=== PATIENT | female | born 1990 | race African-American/Black ===

== ENCOUNTER 2018-08-26 13:54 | Emergency (ER) | payer OTHER ==
[2018-08-26 14:03] VITALS: BP 118/84; PULSE 108; TEMP 97.8; BMI 42.7
--- NOTE | 2018-08-26 14:03 | PDOC ---
Rapid Medical Evaluation Chief Complaint: CVA/TIA Time Seen by Provider: 08/26/18 13:58 Medical Evaluation: Allergies Allergy/AdvReac Type Severity Reaction Status Date / Time No Known Allergies Allergy Verified 10/24/15 09:36 08/26/18 14:0 CC: Slurred speech HPI: Pt is a 27 YO female who states that at 1340 she went to the school nurse and had slurred speech and left arm weakness which has subsided. Pt has a hx of previous TIA/CVA. 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 PE: Skin: Clear Lungs: Clear Heart: RRR Neuro: No slurred speech, no protonator drift, 5/5 strength in UE and LE groups , pt ambulated to exam room MS: Moves all extremities without difficulty. Psych: Appropriate affect Pt went to the back of ED for immediate further evaluation. Discharge Disposition - Diagnosis Slurred speech - Referrals - Patient Instructions - Post Discharge Activity
[2018-08-26] MEDS ORDERED: SODIUM CHLORIDE 1,000 ML IV SCH (14:15)
[2018-08-26 14:56] LABS: INR 1.13 (0.83-1.09); PROTHROMBIN TIME (PATIENT) 13.4 SEC (9.7-13.0)
[2018-08-26 15:17] LABS: ALBUMIN 3.2 g/dl (3.4-5.0); ALK PHOS 79 U/L (45-117); ANION GAP 11 MMOL/L (8-16); BILIRUBIN,TOTAL 0.5 mg/dL (0.2-1); BLOOD UREA NITROGEN 13 mg/dL (7-18); CALCIUM 8.6 mg/dL (8.5-10.1); CHLORIDE 106 mmol/L (98-107); CHOLESTEROL 187 mg/dL (50-200); CO2 23 mmol/L (21-32); CREATININE 0.8 mg/dL (0.55-1.3); GLUCOSE,RANDOM 146 mg/dL (74-106); HDL CHOLESTEROL 54 mg/dL (40-60); POTASSIUM 3.7 mmol/L (3.5-5.1); SGOT/AST 6 U/L (15-37); SGPT/ALT 14 U/L (13-61); SODIUM 141 mmol/L (136-145); TOT PROT 7.4 g/dl (6.4-8.2); TRIGLYCERIDES 127 mg/dL (0-150)
--- NOTE | 2018-08-26 16:23 | PDOC ---
History of Present Illness - General Chief Complaint: CVA/TIA Stated Complaint: LT ARM NUMBNESS, SLURRED SPEECH Time Seen by Provider: 08/26/18 13:58 History Source: Patient Exam Limitations: No Limitations - History of Present Illness Initial Comments: 08/26/18 16:23 Patient is a 27 year old female with a PMHx of Iron Deficiency Anemia who presents here today complaining of an episode of slurred speech and right arm weakness. 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 She was then taken to the nurse at her school and recommended she goes to the emergency department. Patient was brought here by the nurse and seen in Fast track and brought to main ED. Patient reports having similar symptoms in the past and was seen by a neurologist and her PCP, however, she was never given a diagnosis. She states that they keep telling her "everything is ok." Patient denies any chest pain, palpitations, shortness of breath, fevers, chills , nausea, vomiting, abdominal pain, acute vision changes, loss of consciousness , urinary or bowel symptoms. Patient denies any emotional stresses or history of anxiety. 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 Family Hx: Maternal grandmother- stroke and CAD Past History - Past Medical History Allergies/Adverse Reactions: Allergies Allergy/AdvReac Type Severity Reaction Status Date / Time No Known Allergies Allergy Verified 10/24/15 09:36 Home Medications: Ambulatory Orders Ferrous Sulfate 325 mg PO TID #60 tablet 04/17/13 Folic Acid - 1 mg PO DAILY #10 tablet 04/17/13 Anemia: Yes COPD: No Disorders: Yes (Heavy prolonged periods) Other medical history: mild stroke -1 year ago - Reproductive History (#): 0 Cervical CA: No Dysfunctional Uterine Bleeding: No Ectopic : No Endometrial CA: No Polycystic Ovaries: No Therapeutic (s) & number: No Tubal Ligation: No - Immunization History Immunization Up to Date: Yes - Suicide/Smoking/Psychosocial Hx Smoking Status: No Smoking History: Never smoked Have you smoked in the past 12 months: No Number of Cigarettes Smoked Daily: 0 Information on smoking cessation initiated: No Hx Alcohol Use: No Drug/Substance Use Hx: No Substance Use Type: None Hx Substance Use Treatment: No Review of Systems - Review of Systems Able to Perform ROS?: Yes Constitutional: No: Chills, Diaphoresis, Fever HEENTM: No: Blurred Vision, Nose Congestion, Nose Bleeding, Throat Swelling Respiratory: No: Cough, Orthopnea, Shortness of Breath, SOB with Exertion, SOB at Rest, Stridor, Wheezing, Productive cough, Hemoptysis Cardiac (ROS): No: Chest Pain, Edema, Irregular Heart Rate, Lightheadedness, Palpitations, Syncope, Chest Tightness ABD/GI: No: Abdominal Distended, Constipated, Diarrhea, Nausea, Vomiting, Abdominal cramping : No: Burning, Dysuria, Discharge, Flank Pain, Hematuria, Urgency Musculoskeletal: No: Back Pain, Gout, Neck Pain, Joint Stiffness Neurological: Yes: Headache, Numbness (right arm ), Weakness. No: Paresthesia, Tingling, Unsteady Gait, Ataxia, Dizziness Psychiatric: No: Anxiety, Depression Hematologic/Lymphatic: Yes: Anemia *Physical Exam - Vital Signs Last Vital Signs Temp Pulse Resp BP Pulse Ox 97.8 F 108 H 18 118/84 100 08/26/18 13:59 08/26/18 13:59 08/26/18 13:59 08/26/18 13:59 08/26/18 13:59 - Physical Exam General Appearance: Yes: Other (Awake, alert, oriented x3, yelling during examination, billigerent, intermittently uncooperative ) HEENT: positive: EOMI, ALEX, Normal ENT Inspection, Pharynx Normal. negative: Tonsillar Exudate, Tonsillar Erythema, Sinus Tenderness Neck: positive: Supple. negative: Carotid bruit, Decreased range of motion Respiratory/Chest: positive: Lungs Clear, Normal Breath Sounds. negative: Respiratory Distress, Accessory Muscle Use, Decreased Breath Sounds, Crackles, Rales, Rhonchi, Stridor, Wheezing Cardiovascular: positive: Regular Rhythm, Regular Rate, S1, S2. negative: Edema , JVD, Murmur Gastrointestinal/Abdominal: positive: Other (Soft, obese, nontender, nondistended, normoactive bowel sounds, no rebound tenderness or guarding) Musculoskeletal: positive: Normal Inspection. negative: CVA Tenderness, CVA Tenderness (R), CVA Tenderness (L) Extremity: positive: Normal Capillary Refill, Normal Inspection, Normal Range of Motion. negative: Tender, Pelvis Stable, Delayed Capillary Refill, Swelling , Calf Tenderness, Erythema Integumentary: positive: Normal Color, Dry, Warm. negative: Erythema, Jaundice Neurologic: positive: senior oracle database developer II-XII NML intact, Fully Oriented, Alert, Normal Response, Motor Strength 5/5, Finger to Nose (normal ). negative: Abnormal Cranial NS, Numbness, Sensory Deficit, Confused, Disoriented Deep Tendon Reflexes: Knee (L): 2+, Knee (R): 2+, Bicep (L): 2+, Bicep (R): 2+, Tricep (L): 2+, Tricep (R): 2+ NIH Stroke Scale - Initial Evaluation Level of consciousness: Alert Ask patient the month and their age: Answers both correctly Ask patient to open & close eyes; make fist and let go: Obeys both correctly Best gaze (horizontal eye movement): Normal Visual field testing: No visual field loss Facial paresis (Show teeth/raise eyebrows/close eyes tight): Normal symmetrical movement Motor Function: Left Arm: Normal Motor Function: Right Arm: Normal (extends arm 90 (or 45) degrees for 10 seconds without drift Motor Function: Left Leg: Normal (extends leg 30 degrees for 5 seconds without drift) Motor Function: Right Leg: Normal (extends leg 30 degrees for 5 seconds without drift) Limb Ataxia: No ataxia Sensory(Use pinprick test arms,legs,trunk,face/side to side): Normal Best language (Describe picture, name items, read sentences): No Aphasia Dysarthria (read several words): Normal articulation Extinction and Inattention: No abnormality - Total Score NIH Stroke Scale Score: 0 Moderate Sedation - Procedure Monitoring Vital Signs: Procedure Monitoring Vital Signs Temperature 97.8 F 08/26/18 13:59 Pulse Rate 108 H 08/26/18 13:59 Respiratory Rate 18 08/26/18 13:59 Blood Pressure 118/84 08/26/18 13:59 O2 Sat by Pulse Oximetry (%) 100 08/26/18 13:59 Critical Care Time/[facility] Note - Medical Decision Making Note: 08/26/18 16:42 Patient is a 27 year old female who presented here after one episode of slurred speech with right arm weakness and numbness. Patient reports having similar symptoms in the past and was seen by Neurology for it. However, patient reports she was never given a diagnosis. Upon my arrival to evaluate patient, she was belligerent, yelling and verbally abusing me and the nurse. Kept shouting to me that she wants a diagnosis. Patient was refusing to have her blood drawn again for hemolyzed CBC and refusing Head CT to rule out any neurological etiology such as stroke or hemorrhagic bleed. Patient then left AMA. PATIENT ADAMANTLY REFUSES HOSPITALIZATION AND WANTS TO LEAVE AGAINST MEDICAL ADVICE. I EXPLAINED TO PATIENT THAT AGAINST MEDICAL ADVICE IS DANGEROUS AND CAN LEAD TO WORSENING OF CONDITION, PERMANENT DISABILITY, AND EVEN . I USED LAY TERMINOLOGY. I ANSWERED ALL QUESTIONS. ITS CLEAR TO ME THAT SHE UNDERSTANDS THE RISKS AND BENEFITS OF CONTINUOUS HOSPITAL STAY AND LEAVING AGAINST MEDICAL ADVISE. THERE IS NO EVIDENCE OF PSYCHOSIS, ALTERED MENTAL STATUS OR INTOXICATION. SHE HAS THE CAPACITY TO MAKE HER OWN DECISIONS. SHE AGREES TO FOLLOW UP WITH HER PRIMARY MEDICAL DOCTOR TOMORROW AND RETURN TO THE EMERGENCY DEPARTMENT IF SYMPTOMS WORSEN. Patient made an appointment to see her PCP as soon as she leaves the hospital *DC/Admit/Observation/Transfer Diagnosis at time of Disposition: Slurred speech - Discharge Dispostion Disposition: AGAINST MEDICAL ADVICE - Referrals - Patient Instructions - Post Discharge Activity
--- NOTE | 2018-08-26 16:25 | PDOC ---
Attending Attestation - Resident Resident Name: Maren Cornelius - ED Attending Attestation I have performed the following: I have examined & evaluated the patient, The case was reviewed & discussed with the resident, I agree w/resident's findings & plan - Medical Decision Making 08/26/18 16:23 pt was seen at [facility], workup initiated. sx resolved. not tpa candidate given improvement. Discussion at the bedside with patient. pt became agitated and argumentative, refusing labs/repeat stick for hemolyzed CBC and CT head to eval for SAH/bleed/ CVA. pt refused further workup, elects to go home. Pt has capacity to make medical decisions. Discussed indications for treatment and admission, management plan, risks and benefits. There is no evidence of psychosis, altered mental status or intoxication. Pt understands the nature of condition and treatment plan, including potential risks but not limited to: cardiac arrest, severe infection, dehydration, myocardial infarction, arrhythmia , stroke, respiratory failure, coma, severe disability and . Pt will be treated with close follow up with primary care doctor with reevaluation. Return precautions advised, call 911 immediately if severe life threatening symptoms or concerns.. Pt has verbalized understanding of information provided, questions answered.
--- NOTE | 2018-08-27 10:58 | EKG ---
Test Reason : Blood Pressure : / mmHG Vent. Rate : 094 BPM Atrial Rate : 094 BPM P-R Int : 150 ms QRS Dur : 082 ms QT Int : 342 ms P-R-T Axes : 048 031 024 degrees QTc Int : 427 ms NORMAL SINUS RHYTHM NORMAL ECG WHEN COMPARED WITH ECG OF 09-MAR-2012 18:26, NO SIGNIFICANT CHANGE WAS FOUND Confirmed by CAROLYN EDMONDSON MD ([id number]) on 08/27/2018 10:58:09 AM Referred By: Confirmed By:CAROLYN EDMONDSON MD
== END 2018-08-26 16:20 | disposition left against medical advice (07) ==
LOC: JER 13:54
DX: R47.81 Slurred speech (principal); D50.9 Iron deficiency anemia, unspecified; Z86.73 Personal history of transient ischemic attack (TIA), and cerebral infarction without residual deficits
CPT/HCPCS: 36415; 80053; 82465; 82550; 83718; 83721; 84478; 84484; 84703; 85610; 86850; 86870; 86900; 86901; 86902; 93005; 93010; 99282-25; J7030

== ENCOUNTER 2018-09-24 09:46 | Emergency (ER) | payer OTHER ==
[2018-09-24 10:19] VITALS: BMI 47.5
[2018-09-24] MEDS ORDERED: METOCLOPRAMIDE HCL INJECTION 10 MG/2 ML VIAL IVPB ONE (11:21)
[2018-09-24] MEDS ORDERED: ACETAMINOPHEN 1000 MG/100 ML VIAL (NON FORMULARY) IVPB ONE (11:21)
[2018-09-24] MEDS ORDERED: SODIUM CHLORIDE 1,000 ML IV STA (11:21)
--- NOTE | 2018-09-24 11:22 | PDOC ---
History of Present Illness - General Chief Complaint: Vaginal Bleeding Stated Complaint: HEADACHE/COUGH Time Seen by Provider: 09/24/18 10:26 Past History - Past Medical History Allergies/Adverse Reactions: Allergies Allergy/AdvReac Type Severity Reaction Status Date / Time No Known Allergies Allergy Verified 10/24/15 09:36 Home Medications: Ambulatory Orders Ferrous Sulfate 325 mg PO TID #60 tablet 04/17/13 Folic Acid - 1 mg PO DAILY #10 tablet 04/17/13 Anemia: Yes Asthma: No Cancer: No Cardiac Disorders: No CVA: No COPD: No CHF: No DVT: No Dementia: No Diabetes: No Dialysis: No GI Disorders: No Disorders: Yes (Heavy prolonged periods) HTN: No Hypercholesterolemia: No Kidney Stones: No Liver Disease: No Psychiatric Problems: No Seizures: No Thyroid Disease: No Lung CA: No - Surgical History Abdominal Surgery: No Appendectomy: No Cardiac Surgery: No Cholecystectomy: No Gastric Stapling: No GI Surgery: No Lung Surgery: No Neurologic Surgery: No - Reproductive History Is Patient Now?: No (#): 0 Cervical CA: No Dysfunctional Uterine Bleeding: No Ectopic : No Endometrial CA: No Polycystic Ovaries: No Therapeutic (s) & number: No Tubal Ligation: No - Immunization History Immunization Up to Date: Yes - Suicide/Smoking/Psychosocial Hx Smoking Status: No Smoking History: Never smoked Have you smoked in the past 12 months: No Number of Cigarettes Smoked Daily: 0 Hx Alcohol Use: Yes Drug/Substance Use Hx: No Substance Use Type: None Hx Substance Use Treatment: No *Physical Exam - Vital Signs Last Vital Signs Temp Pulse Resp BP Pulse Ox 98.3 F 80 18 116/58 L 100 09/24/18 10:53 09/24/18 10:53 09/24/18 10:53 09/24/18 10:53 09/24/18 10:53 Moderate Sedation - Procedure Monitoring Vital Signs: Procedure Monitoring Vital Signs Temperature 98.3 F 09/24/18 10:53 Pulse Rate 80 09/24/18 10:53 Respiratory Rate 18 09/24/18 10:53 Blood Pressure 116/58 L 09/24/18 10:53 O2 Sat by Pulse Oximetry (%) 100 09/24/18 10:53 ED Treatment Course - LABORATORY CBC & Chemistry Diagram: 09/24/18 12:39 09/24/18 12:39 *DC/Admit/Observation/Transfer Diagnosis at time of Disposition: Headache - Discharge Dispostion Disposition: AGAINST MEDICAL ADVICE Condition at time of disposition: Fair - Referrals Referrals: Shaquille Stover MD [Primary Care Provider] - - Patient Instructions - Post Discharge Activity
[2018-09-24] MEDS ORDERED: diphenhydrAMINE HCL 12.5 MG/5 ML BULK BOTTLE ONE (11:40)
[2018-09-24] MEDS ORDERED: METOCLOPRAMIDE HCL INJECTION 10 MG/2 ML VIAL ONE (11:40)
[2018-09-24] MEDS ORDERED: ACETAMINOPHEN INJECTION 100 ML IVPB ONE (11:40)
[2018-09-24 12:53] LABS: BASO % 0.7 % (0-2.0); EOS % 5.3 % (0-4.5); HEMATOCRIT 25.9 % (32.4-45.2); HEMOGLOBIN 8.3 GM/dL (10.7-15.3); LYMPH % 16.1 % (8-40); MCHC 32.3 g/dl (32.0-36.0); MEAN CELL VOLUME 65.1 fl (80-96); MEAN PLT VOLUME 8.7 fl (7.5-11.1); NEUT % 73.9 % (42.8-82.8); PLATELET COUNT 421 K/MM3 (134-434); RBC 3.97 M/mm3 (3.60-5.2); RDW 24.9 % (11.6-15.6); WHITE BLOOD COUNT 8.8 K/mm3 (4.0-10.0)
[2018-09-24 13:08] LABS: INR 1.17 (0.83-1.09); PROTHROMBIN TIME (PATIENT) 13.8 SEC (9.7-13.0)
[2018-09-24 13:20] LABS: ALBUMIN 3.2 g/dl (3.4-5.0); ALK PHOS 84 U/L (45-117); ANION GAP 7 MMOL/L (8-16); BILIRUBIN,TOTAL 0.2 mg/dL (0.2-1); BLOOD UREA NITROGEN 11 mg/dL (7-18); CALCIUM 8.5 mg/dL (8.5-10.1); CHLORIDE 104 mmol/L (98-107); CO2 27 mmol/L (21-32); CREATININE 0.7 mg/dL (0.55-1.3); GLUCOSE,RANDOM 101 mg/dL (74-106); POTASSIUM 4.1 mmol/L (3.5-5.1); SGOT/AST 25 U/L (15-37); SGPT/ALT 14 U/L (13-61); SODIUM 137 mmol/L (136-145); TOT PROT 7.8 g/dl (6.4-8.2)
[2018-09-24 13:36] VITALS: BP 128/77; PULSE 73; TEMP 98.2
[2018-09-24 16:43] LABS: ANISOCYTOSIS 2+; PLATELET ESTIMATE ADEQUATE
== END 2018-09-24 13:30 | disposition left against medical advice (07) ==
LOC: JER 09:46
PROC: 3E033NZ Introduction of Analgesics, Hypnotics, Sedatives into Peripheral Vein, Percutaneous Approach (ICD-10-PCS; principal; 2018-09-24)
PROC: 3E033GC Introduction of Other Therapeutic Substance into Peripheral Vein, Percutaneous Approach (ICD-10-PCS; 2018-09-24)
PROC: 3E033GC Introduction of Other Therapeutic Substance into Peripheral Vein, Percutaneous Approach (ICD-10-PCS; 2018-09-24)
DX: R51 Headache (principal); N92.0 Excessive and frequent menstruation with regular cycle
CPT/HCPCS: 36415; 80053; 85025; 85610; 96374; 96375; 99283-25; J0131; J7030

== ENCOUNTER 2020-03-23 18:56 | Inpatient (IN) | payer OTHER ==
[2020-03-23 19:11] VITALS: BMI 47.2
[2020-03-23 20:49] LABS: BASO % 1.1 % (0-2.0); EOS % 0.7 % (0-4.5); HEMATOCRIT 17.8 % (32.4-45.2); LYMPH % 18.5 % (8-40); MCHC 28.3 g/dl (32.0-36.0); MEAN CELL VOLUME 61.4 fl (80-96); MEAN PLT VOLUME 8.8 fl (7.5-11.1); MONO % 4.1 % (3.8-10.2); NEUT % 75.6 % (42.8-82.8); PLATELET COUNT 313 K/MM3 (134-434); RBC 2.89 M/mm3 (3.60-5.2); RDW 22.9 % (11.6-15.6); WHITE BLOOD COUNT 11.1 K/mm3 (4.0-10.0)
[2020-03-23 20:53] LABS: MCH 17.4 pg (25.7-33.7)
[2020-03-23 21:04] LABS: INR 1.08 (0.83-1.09); PROTHROMBIN TIME (PATIENT) 12.7 SEC (9.7-13.0)
[2020-03-23 21:07] LABS: ACTIVATED PTT 26.4 SECONDS (25.2-36.5)
--- NOTE | 2020-03-23 21:17 | PDOC ---
History of Present Illness - General Chief Complaint: Vaginal Bleeding Stated Complaint: MIGRANE Time Seen by Provider: 03/23/20 21:03 - History of Present Illness Initial Comments: Bebe Smith is a 29 y/o female with PMH significant for anemia, PCOS, menorrhagia, s/p CVA, presenting today with fatigue, cough, vaginal bleeding shortness of breath, and dizziness. Pre patient, she was at work when she started feeling fatigue and fell asleep, which prompted her business integration manager to suggest she present to the ED for further evaluation. Pt states that she has PCOS and a history of heavy periods. Her current period started on March 10 and she started feeling dizzy and short of breath since Saturday. Also reports a chronic cough for the past 3 months which she has seen her PCP for. No chest pain/weakness/numbness/tingling. No back pain/leg swelling. Past History - Medical History Allergies/Adverse Reactions: Allergies Allergy/AdvReac Type Severity Reaction Status Date / Time ceftriaxone Allergy Severe Vomiting Verified 03/24/20 10:51 Home Medications: Ambulatory Orders Ferrous Sulfate 325 mg PO BID 03/23/20 Metformin HCl [Glucophage] 500 mg PO BID 03/24/20 Anemia: Yes Asthma: No Cancer: No Cardiac Disorders: No CVA: Yes (stroke 09/2018) COPD: No CHF: No DVT: No Dementia: No Diabetes: No Dialysis: No GI Disorders: No Disorders: Yes (Heavy prolonged periods) HTN: No Hypercholesterolemia: No Kidney Stones: No Liver Disease: No Psychiatric Problems: No Seizures: No Thyroid Disease: No Lung CA: No - Surgical History Abdominal Surgery: No Appendectomy: No Cardiac Surgery: No Cholecystectomy: No Gastric Stapling: No GI Surgery: No Lung Surgery: No Neurologic Surgery: No - Reproductive History Is Patient Now?: No (#): 0 Cervical CA: No Dysfunctional Uterine Bleeding: No Ectopic : No Endometrial CA: No Polycystic Ovaries: No Therapeutic (s) & number: No Tubal Ligation: No - Immunization History Immunization Up to Date: Yes - Psycho-Social/Smoking History Smoking Status: No Smoking History: Never smoked Have you smoked in the past 12 months: No Number of Cigarettes Smoked Daily: 0 - Substance Abuse Hx (Audit-C & DAST Scrn) How often the patient has a drink containing alcohol: Monthly or less Number of drinks the patient has on a typical day: 1 or 2 How often the patient has six or more drinks on one occasion: Less than monthly Score: In Men: 4 or > Positive; In Women: 3 or > Positive: 2 Screen Result (Pos requires Nsg. Audit-10AR): Negative In the last yr the pt used illegal drug/Rx for NonMed reason: No Score: Yes response is considered Positive: 0 Screen Result (Positive result requires Nsg. DAST-10): Negative Review of Systems - Review of Systems Comments:: GENERAL/CONSTITUTIONAL: No fever or chills. Reports fatigue. HEAD, EYES, EARS, NOSE AND THROAT: No change in vision. No change in hearing. No sore throat._ CARDIOVASCULAR: No chest pain. Reports shortness of breath. RESPIRATORY: Reports cough. No hemoptysis_ GASTROINTESTINAL: No nausea, vomiting, diarrhea or constipation._ GENITOURINARY: No dysuria, frequency, or change in urination. Reports heavy menstrual bleeding. MUSCULOSKELETAL: No joint or muscle swelling or pain. No neck or back pain._ SKIN: No rash_ NEUROLOGIC: Reports mild headache and lightheadedness. No vertigo, loss of consciousness, or change in strength/sensation._ ENDOCRINE: No increased thirst. No abnormal weight change_ HEMATOLOGIC/LYMPHATIC: Reports anemia. ALLERGIC/IMMUNOLOGIC: No hives or skin allergy. *Physical Exam - Vital Signs Last Vital Signs Temp Pulse Resp BP Pulse Ox 98.6 F 116 H 19 111/54 L 100 03/23/20 19:04 03/23/20 19:04 03/23/20 19:04 03/23/20 19:04 03/23/20 19:04 - Physical Exam GENERAL: Awake, alert, and oriented to person/place/time, in no acute distress_ HEAD: No signs of trauma, normocephalic, atraumatic _ EYES: PERRLA, EOMI, sclera anicteric, conjunctiva clear_ ENT: Hearing grossly normal, nares patent, oropharynx clear without exudates. No uvular deviation. Moist mucosa_ NECK: Normal ROM, supple, no lymphadenopathy, JVD, or masses_ LUNGS: No distress, speaks in full sentences, clear to auscultation bilaterally _ HEART: Regular rate and rhythm, normal S1 and S2, no murmurs appreciated, peripheral pulses normal and equal bilaterally._ ABDOMEN: Soft, obese, nontender, normoactive bowel sounds. No guarding, no rebound. No masses_ EXTREMITIES: Normal inspection, Normal range of motion, no edema. No clubbing or cyanosis_ NEUROLOGICAL: Cranial nerves II through XII grossly intact. Normal speech, normal gait, no focal sensorimotor deficits _ SKIN: Warm, Dry, normal turgor, no rashes or lesions noted_ PELVIC: Normal external exam. Blood noted in the vaginal vault. Os closed. No CMT. No adnexal tenderness bilaterally. ED Treatment Course - LABORATORY CBC & Chemistry Diagram: 03/24/20 12:00 03/24/20 06:00 - ADDITIONAL ORDERS Additional order review: Laboratory Results 03/23/20 03/23/20 20:22 20:22 PT with INR 12.70 INR 1.08 PTT (Actin FS) 26.4 Serum , Qual Negative 03/23/20 20:22 RBC 2.89 L MCV 61.4 L MCHC 28.3 L RDW 22.9 H MPV 8.8 Neutrophils % 75.6 Lymphocytes % 18.5 Monocytes % 4.1 Eosinophils % 0.7 D Basophils % 1.1 - RADIOLOGY Radiology Studies Ordered: Category Date Time Status CHEST X-RAY PORTABLE* [RAD] Stat Radiology 03/23/20 21:16 Ordered Medical Decision Making - Medical Decision Making 03/23/20 21:17 29F presenting today after feeling fatigued at work. Hx of heavy menstrual bleeding, and has been having her period for the past two weeks. Hx of PCOS. No control as she has had a CVA in the past. Hgb on presentation was 5. Dizziness/shortness of breath since Saturday. Chronic cough for the past 3 months, has seen PCP for this. -cbc, cmp -ekg -cxr -coags -type and screen -2 units pRBC -serum preg 03/23/20 22:49 EKG shows 88 bpm, NSR, no axis deviation, VT 140, QTc 413, no ST elevation/ depression. No significant interval change compared to Aug 2018. 03/23/20 23:14 Labs reviewed. Laboratory Last Values WBC 11.1 K/mm3 (4.0-10.0) H 03/23/20 20:22 RBC 2.89 M/mm3 (3.60-5.2) L 03/23/20 20:22 Hgb 5.0 GM/dL (10.7-15.3) L* 03/23/20 20: Hct 17.8 % (32.4-45.2) L D 03/23/20 20: MCV 61.4 fl (80-96) L 03/23/20 20: MCH 17.4 pg (25.7-33.7) L D 03/23/20 20: MCHC 28.3 g/dl (32.0-36.0) L 03/23/20 20: RDW 22.9 % (11.6-15.6) H 03/23/20 20: Plt Count 313 K/MM3 (134-434) D 03/23/20 20: MPV 8.8 fl (7.5-11.1) 03/23/20 20: Absolute Neuts (auto) 8.4 K/mm3 (1.5-8.0) H 03/23/20 20: Neutrophils % 75.6 % (42.8-82.8) 03/23/20 20: Lymphocytes % 18.5 % (8-40) 03/23/20 20: Monocytes % 4.1 % (3.8-10.2) 03/23/20 20: Eosinophils % 0.7 % (0-4.5) D 03/23/20 20: Basophils % 1.1 % (0-2.0) 03/23/20 20: Nucleated RBC % 0 % (0-0) 03/23/20 20: Hypochromia 3+ 03/23/20 20: Polychromasia 1+ 03/23/20 20:22 Anisocytosis 3+ 03/23/20 20:22 Microcytosis 2+ 03/23/20 20:22 Macrocytosis 1+ 03/23/20 20: Rouleaux 2+ 03/23/20 20: PT with INR 12.70 SEC (9.7-13.0) 03/23/20 20: INR 1.08 (0.83-1.09) 03/23/20 20:22 PTT (Actin FS) 26.4 SECONDS (25.2-36.5) 03/23/20 20: Sodium 141 mmol/L (136-145) 03/23/20 22:00 Potassium 4.0 mmol/L (3.5-5.1) 03/23/20 22:00 Chloride 108 mmol/L (98-107) H 03/23/20 22:00 Carbon Dioxide 27 mmol/L (21-32) 03/23/20 22:00 Anion Gap 7 MMOL/L (8-16) L 03/23/20 22:00 BUN 12.1 mg/dL (7-18) 03/23/20 22:00 Creatinine 0.9 mg/dL (0.55-1.3) 03/23/20 22:00 Est GFR (CKD-EPI)AfAm 100.85 03/23/20 22:00 Est GFR (CKD-EPI)NonAf 87.01 03/23/20 22:00 Random Glucose 126 mg/dL (74-106) H 03/23/20 22:00 Calcium 8.5 mg/dL (8.5-10.1) 03/23/20 22:00 Total Bilirubin 0.1 mg/dL (0.2-1) L 03/23/20 22:00 AST 15 U/L (15-37) 03/23/20 22:00 ALT 11 U/L (13-61) L 03/23/20 22:00 Alkaline Phosphatase 70 U/L (45-117) 03/23/20 22:00 Creatine Kinase 94 U/L (26-192) 03/23/20 22:00 Troponin I < 0.02 ng/ml (0.00-0.05) 03/23/20 22:00 Total Protein 7.0 g/dl (6.4-8.2) 03/23/20 22:00 Albumin 3.0 g/dl (3.4-5.0) L 03/23/20 22:00 Serum , Qual Negative 03/23/20 20:22 Blood Type A POSITIVE 03/23/20 20:22 Antibody Screen Negative 03/23/20 20:22 Crossmatch See Detail 03/23/20 20:22 03/24/20 00:01 CXR negative for acute intrathoracic pathology. Decreased penetration in the lower lung alcazar likely 2/2 body habitus. 03/24/20 01:35 D/w Dr. Tran who accepts the patient for admission. Discharge - Discharge Information Problems reviewed: Yes Clinical Impression/Diagnosis: Symptomatic anemia Condition: Stable - Admission Yes - Follow up/Referral - Patient Discharge Instructions - Post Discharge Activity
[2020-03-23 21:30] LABS: ANISOCYTOSIS 3+; MACROCYTOSIS 1+; ROULEAU 2+
[2020-03-23 22:33] LABS: ALK PHOS 70 U/L (45-117); ANION GAP 7 MMOL/L (8-16); BILIRUBIN,TOTAL 0.1 mg/dL (0.2-1); BLOOD UREA NITROGEN 12.1 mg/dL (7-18); CALCIUM 8.5 mg/dL (8.5-10.1); CHLORIDE 108 mmol/L (98-107); CO2 27 mmol/L (21-32); CREATININE 0.9 mg/dL (0.55-1.3); GLUCOSE,RANDOM 126 mg/dL (74-106); SGOT/AST 15 U/L (15-37); SGPT/ALT 11 U/L (13-61); SODIUM 141 mmol/L (136-145)
--- NOTE | 2020-03-23 22:38 | PDOC ---
Documentation entered by Katiuska Maria SCRIBE, acting as scribe for Jodie Quick DO. Jodie Quick DO: This documentation has been prepared by the Crow [place]on Sydney, SCRIBE, under my direction and personally reviewed by me in its entirety. I confirm that the documentation accurately reflects all work, treatment, procedures, and medical decision making performed by me. Attending Attestation - Resident Resident Name: Robert Sahni - ED Attending Attestation I have performed the following: I have examined & evaluated the patient, The case was reviewed & discussed with the resident, I agree w/resident's findings & plan, Exceptions are as noted - HPI HPI: 03/23/20 21:34 Patient is a 29 year old female with a significant past medical history of anemia, heavy menstrual bleeding who presents to the ED with three days of shortness of breath and dizziness. 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 Patient also endorses two weeks of vaginal bleeding and her hemoglobin count was 5. Patient denies any other symptoms. Allergies: NKDA - Physicial Exam PE: 03/23/20 21:44 Gen: aaox3, nad heent: mmm, eomi neck: supple heart: +s1s2 tachy lungs: cta b/l abd: soft, nt/nd +bs ext: no c/c/e 03/23/20 21:56 - Medical Decision Making 03/23/20 21:56 a/p: 29yo female with hx of pcos with vaginal bleeding that has been longer in length of time with an episode of near syncope/dizziness today at work -pt with hx of bleeding for about a month when she gets her menstrual cycle -has been bleeding all of february -has had low hgb in the past, has had transfusions in the past -pt with lightheaded/dizzy episode today at work -hgb on labs ordered from [facility] show an hgb fo 5 -pt states she bled for the month of february, not heavy but about 4 tampons a day -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 -has had progesterone therapy in the past, was on control and metformin, but about a year ago she had a cva, thought secondary to ocp use so she stopped it -pt has had multiple ultrasounds in the past that show pcos, but no fibroids, denies abd cramping -will transfuse 2 units -will need admission overnight for blood transfusion 03/24/20 00:01 cxr clear transfuse pending microblog sent to [facility] for admission 03/24/20 01:34 resident discussed with [facility] who accepts pt to service Heart Score/ECG Review - ECG Intrepretation Comment:: 03/23/20 22:38 sinus at 88, nl axis, nl interval, no acute st/t wave findings Discharge - Discharge Information Problems reviewed: Yes Clinical Impression/Diagnosis: Symptomatic anemia Condition: Fair - Admission Yes - Follow up/Referral - Patient Discharge Instructions - Post Discharge Activity
[2020-03-24] MEDS ORDERED: guaiFENesin 200 MG/10 ML 10 ML UNIT-DOSE CUPS PO PRN (01:04)
[2020-03-24] MEDS ORDERED: guaiFENesin 200 MG/10 ML 10 ML UNIT-DOSE CUPS ONE (01:08)
[2020-03-24] MEDS ORDERED: ACETAMINOPHEN 325 MG TABLET (FP) PO PRN (03:10)
[2020-03-24 03:22] LABS: HCG,QUALITATIVE URINE Negative
[2020-03-24 03:25] LABS: EPI CELLS 13 /uL (0-25.1); HYALINE CASTS 2 /uL (0-3.1); PH,URINE 5.5 (5.0-8.0); URINE APPEARANCE CLOUDY; URINE BACTERIA 519 /uL (0-1359); URINE BILIRUBIN NEGATIVE (NEGATIVE); URINE COLOR ORANGE; URINE GLUCOSE (UA) NEGATIVE (NEGATIVE); URINE KETONE NEGATIVE (NEGATIVE); URINE LEUK ESTERASE 1+ (NEGATIVE); URINE NITRITE NEGATIVE (NEGATIVE); URINE PROTEIN 1+ (NEGATIVE); URINE RBC 6053 /uL (0-23.9); URINE UROBILINOGEN 0.2 mg/dL (0.2-1.0); URINE WBC 218 /uL (0-25.8)
--- NOTE | 2020-03-24 06:27 | PN ---
Teaching Attending Note Name of Resident: eGe Douglas ATTENDING PHYSICIAN STATEMENT I saw and evaluated the patient. I reviewed the resident's note and discussed the case with the resident. I agree with the resident's findings and plan as documented. SUBJECTIVE: OBJECTIVE: ASSESSMENT AND PLAN: DOS March 24 2020 29 year old female with a significant past medical history of anemia, heavy menstrual bleeding who presents to the ED with three days of shortness of breath and dizziness. Patient also endorses two weeks of vaginal bleeding and her hemoglobin count was 5 PLAN # Send iron studies, B12/folate # Agree with transfusion 2 units PRBCs # Diet Tech evaluation in AM
--- NOTE | 2020-03-24 06:29 | HP ---
CHIEF COMPLAINT: Dizziness and fatigue PCP: none HISTORY OF PRESENT ILLNESS: Pt is a 29 yo F with PMH of iron-deficiency anemia, multiple admissions for transfusions after irregular bleeding and menorrhagia, CVA (with no residual deficits in 2019), chronic migraines, and PCOS presenting to the ED with worsening SOB, fatigue, and dizziness x 3 days. Pt reports that this has happened before. She reports two weeks of vaginal bleeding; requiring about 4 pads per day on average. Pt also reports having a R sided migraine with associated photophobia, nausea, but not vomiting. Pt denies fevers, chills, urinary changes (i.e. dysuria/urinary frequency), diarrhea, constipation, or chest pain. Pelvic examination in the ED yielded blood in vaginal vault but no active bleeding. ObGyn Hx: Pt reports she has been having irregular and heavy periods since 14 years of age and states that this worsened at age 19. Now reports a pattern of 1 month of continuous menstrual bleeding followed by 2 months of no bleeding. This has been going on for the last year. Her last admission for blood transfusion was in November. Pt has tried many types of control (oral, patch, nexplanon) as well as progesterone therapy without improvement. Multiple TVUS in past showing PCOS but no fibroids or other acute pathology. Pt is requesting good ObGyn follow-up to help resolve this chronic issue. ER course was notable for: (1) CXR without acute pathology (2) Transfusion of pRBC started; plan to give 2 units. Recent Travel: None Sick Contacts: none PAST MEDICAL HISTORY: As per HPI; CVA in 2019 pt left AMA before she could be evaluated PAST SURGICAL HISTORY: none Family Hx Iron deficiency anemia in all the women in her family Social History: At home alone with mom nearby. 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 Smoking: denies Alcohol: drinks alcohol occasionally; only a few times per months Drugs: denies Allergies No Known Allergies Allergy (Verified 10/24/15 09:36) HOME MEDICATIONS: Home Medications Medication Instructions Recorded Ferrous Sulfate 325 mg PO BID 03/23/20 Metformin HCl [Glucophage] 0 mg PO BID 03/23/20 REVIEW OF SYSTEMS as per HPI PHYSICAL EXAMINATION Vital Signs - 24 hr 03/23/20 03/24/20 03/24/20 19:04 01:20 04:45 Temperature 98.6 F 98.2 F 98.6 F Pulse Rate 116 H Pulse Rate [ 79 84 Left Radial] Respiratory 19 18 18 Rate Blood Pressure 111/54 L Blood Pressure 103/46 L 97/44 L [Right Arm] O2 Sat by Pulse 100 100 100 Oximetry (%) Physical Exam VS: orthostatic vitals negative no orthostatic hypotension GENERAL: Awake, alert, and fully oriented, in no acute distress. HEAD: NCAT EYES: PERRLA, EOMI, sclera white, conjunctiva clear. EARS, NOSE, THROAT: Oropharynx clear without exudates. Moist mucous membranes. NECK: Supple without lymphadenopathy, or masses. LUNGS: Breath sounds equal, clear to auscultation bilaterally. No wheezes, and no crackles. No accessory muscle use. HEART: Regular rate and rhythm, normal S1 and S2 without murmur, rub or gallop. ABDOMEN: Soft, nontender, not distended, normoactive bowel sounds. No suprapubic tenderness. MUSCULOSKELETAL: Moving all extremities spontaneously and equally. UPPER EXTREMITIES: 2+ pulses, warm, well-perfused. No peripheral edema. LOWER EXTREMITIES: 2+ pulses, warm, well-perfused. No peripheral edema. NEUROLOGICAL: Cranial nerves II-XII intact. Normal speech. SKIN: Warm, dry, normal turgor, no rashes or lesions noted Laboratory Results - last 24 hr 03/23/20 03/23/20 03/23/20 20:22 20:22 20:22 WBC 11.1 H RBC 2.89 L Hgb 5.0 L* Hct 17.8 L D MCV 61.4 L MCH 17.4 L D MCHC 28.3 L RDW 22.9 H Plt Count 313 D MPV 8.8 Absolute Neuts (auto) 8.4 H Neutrophils % 75.6 Lymphocytes % 18.5 Monocytes % 4.1 Eosinophils % 0.7 D Basophils % 1.1 Nucleated RBC % 0 Hypochromia 3+ Polychromasia 1+ Anisocytosis 3+ Microcytosis 2+ Macrocytosis 1+ Rouleaux 2+ PT with INR 12.70 INR 1.08 PTT (Actin FS) 26.4 Sodium Potassium Chloride Carbon Dioxide Anion Gap BUN Creatinine Est GFR (CKD-EPI)AfAm Est GFR (CKD-EPI)NonAf Random Glucose Calcium Total Bilirubin AST ALT Alkaline Phosphatase Creatine Kinase Troponin I Total Protein Albumin Serum , Qual Negative Urine Color Urine Appearance Urine pH Ur Specific [place] Urine Protein Urine Glucose (UA) Urine Ketones Urine Blood Urine Nitrite Urine Bilirubin Urine Urobilinogen Ur Leukocyte Esterase Urine WBC (Auto) Urine RBC (Auto) Urine Casts (Auto) U Epithel Cells (Auto) Urine Bacteria (Auto) Urine HCG, Qual Blood Type Antibody Screen Crossmatch 03/23/20 03/23/20 03/24/20 20:22 22:00 02:54 WBC RBC Hgb Hct MCV MCH MCHC RDW Plt Count MPV Absolute Neuts (auto) Neutrophils % Lymphocytes % Monocytes % Eosinophils % Basophils % Nucleated RBC % Hypochromia Polychromasia Anisocytosis Microcytosis Macrocytosis Rouleaux PT with INR INR PTT (Actin FS) Sodium 141 Potassium 4.0 Chloride 108 H Carbon Dioxide 27 Anion Gap 7 L BUN 12.1 Creatinine 0.9 Est GFR (CKD-EPI)AfAm 100.85 Est GFR (CKD-EPI)NonAf 87.01 Random Glucose 126 H Calcium 8.5 Total Bilirubin 0.1 L AST 15 ALT 11 L Alkaline Phosphatase 70 Creatine Kinase 94 Troponin I < 0.02 Total Protein 7.0 Albumin 3.0 L Serum , Qual Urine Color [place] Urine Appearance Cloudy Urine pH 5.5 Ur Specific [place] 1.023 Urine Protein 1+ H Urine Glucose (UA) Negative Urine Ketones Negative Urine Blood 3+ H Urine Nitrite Negative Urine Bilirubin Negative Urine Urobilinogen 0.2 Ur Leukocyte Esterase 1+ H Urine WBC (Auto) 218 Urine RBC (Auto) 6053 Urine Casts (Auto) 2 U Epithel Cells (Auto) 13 Urine Bacteria (Auto) 519 Urine HCG, Qual Negative Blood Type A POSITIVE Antibody Screen Negative Crossmatch See Detail ASSESSMENT/PLAN: Pt is a 29 yo F with PMH of iron-deficiency anemia, multiple admissions for transfusions after irregular bleeding and menorrhagia, CVA (with no residual deficits in 2019), chronic migraines, and PCOS being admitted for blood transfusion for acute symptomatic anemia (hb/hct 5.0/17.8). #Acute Symptomatic Anemia (likely 2/2 to menorrhagia) Hx of requiring multiple transfusions after month-long irregular menses with menorrhagia (at [facility], [facility], and other institutions per pt) Hb/Hct 5.0/17.8; MCV 61.4 (Microcytic Anemia) UA with 3+ blood; likely 2/2 to menstrual bleeding and blood in vaginal fault -Pt receiving 2 u pRBCs in ED; f/u 6 am CBC; transfuse if Hb <7 -Iron studies -TSH, B12, folate -TVUS -ObGyn consulted #Likely Acute Uncomplicated Cystitis UA with 1+ leuk esterase; wbc, and bacteria - Urine Cx - IV rocephin 1 g daily #PCOS Pt not on any OCPs, hormonal therapy as treatments were stopped after CVA in 2019. -Pt may be on metformin (sometimes prescribed for PCOS) -Need to complete medication reconciliation. -Pt has not been significantly hyperglycemic but can consider BGM with ISS if pts sugars are not well-controlled #Chronic Migraines Takes Excedrin at home. Not starting her on Excedrin in hospital in setting of symptomatic anemia. -Tylenol 650 PO prn #DVT PPx -SCDs #FEN -F PO; IVF not needed at this point -E monitor; replete PRN -N diabetic, low fat diet Dispo: Admit to med-surg. Visit type - Emergency Visit Emergency Visit: Yes ED Registration Date: 03/24/20 Care time: The patient presented to the Emergency Department on the above date and was hospitalized for further evaluation of their emergent condition. - New Patient This patient is new to me today: Yes Date on this admission: 03/24/20 - Critical Care Critical Care patient: No ATTENDING PHYSICIAN STATEMENT I saw and evaluated the patient. I reviewed the resident's note and discussed the case with the resident. I agree with the resident's findings and plan as documented. SUBJECTIVE: OBJECTIVE: ASSESSMENT AND PLAN:
[2020-03-24] MEDS ORDERED: LACTATED RINGERS SOLUTION 1,000 ML/1,000 ML INFUS.BAG IV SCH (08:00)
--- NOTE | 2020-03-24 08:50 | CONSULT ---
Consult Consult Specialty:: OBGYN Reason for Consultation:: Anemia, Irregular Bleeding - History of Present Illness Chief Complaint: Irregular Bleeding History of Present Illness: 29yo G0 female here with irregular bleeding, history of PCOS per her report. Admitted to medicine service for severe anemia, Hct 18 Previous OBGYN: Dr. Hansen, last seen 2 years ago she believes, has also seen a Dr. Portillo at [facility] in addition for [employer] care as well as PP in [place] for a Nexplanon. Reports being advised to start Metformin in the past, but unable to recall if she actually took medication and who prescribed them. Reports longstanding history of irregular bleeding, had a period from November-December- 30 days and then again January-February- still bleeding, but decreasing. History of CVA, cannot take Estrogen. Has used Nexplanon in the past and POPs, but has not be consistent with [employer] care and follow up. 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 No: Alzheimer's, Dementia, Migraine, Multiple Sclerosis, Peripheral Neuropathy, Parkinson's, Seizure, Syncope, TIA, Vertigo, Other Cardio/Vascular: No: AFIB, Aneurysm, Aortic Insufficiency, Aortic Stenosis, CAD, CHF, Deep Vein Thrombosis, HTN, Hyperlipdemia, [place], Mitral Insufficiency, Mitral Stenosis, Murmur, Pulmonary Hypertension, Other Pulmonary: No: Asthma, Bronchitis, Cancer, COPD, O2 Dependent, Pneumonia, Previously Intubated, Pulmonary Embolus, Pulmonary Fibrosis, Sleep Apnea, Other Gastrointestinal: No: Ascites, Cancer, Constipation, Crohn's Disease, Diverticulitis, Diverticulosis, Esophageal Varices, Gastritis, GERD, GI Bleed, Hemorrhoids, Hiatal Hernia, Inflamatory Bowel Disease, Irritable Bowel Disease, Pancreatitis, Peptic Ulcer Disease, Ulcerative Colitis, Other Hepatobiliary: No: Cirrhosis, Cholelithiasis, Cholecystitis, Choledocholithiasis, Hepatitis A, Hepatitis B, Hepatitis C, Other Reproductive: Yes: Polycystic Ovary Syndrome. No: Ectopic , Endomet riosis, Fibroids, PID, Postmenopausal, Other ...LMP: 03/10/20 ...: No Heme/Onc: Yes: Anemia - Past Surgical History Past Surgical History: Yes: None - Alcohol/Substance Use Hx Alcohol Use: Yes History of Substance Use: reports: None - Smoking History Smoking history: Never smoked Have you smoked in the past 12 months: No Aproximately how many cigarettes per day: 0 Home Medications - Allergies Allergies/Adverse Reactions: Allergies Allergy/AdvReac Type Severity Reaction Status Date / Time No Known Allergies Allergy Verified 10/24/15 09:36 - Home Medications Home Medications: Ambulatory Orders Ferrous Sulfate 325 mg PO BID 03/23/20 Metformin HCl [Glucophage] 0 mg PO BID 03/23/20 Review of Systems - Review of Systems Constitutional: reports: No Symptoms Genitourinary: reports: Vaginal Bleeding Physical Exam Vital Signs: Vital Signs Temperature 98 F 03/24/20 06:49 Pulse Rate 78 03/24/20 06:49 Respiratory Rate 22 H 03/24/20 06:49 Blood Pressure 96/52 L 03/24/20 06:49 O2 Sat by Pulse Oximetry (%) 98 03/24/20 06:49 Constitutional: Yes: Well Nourished, No Distress, Calm Eyes: Yes: WNL, Conjunctiva Clear, EOM Intact HENT: Yes: WNL ([employer]CH[employer] exam deferred) Labs: CBC, BMP 03/23/20 20:22 03/23/20 22:00 Imaging - Results Ultrasound: Report Reviewed Assessment/Plan 29yo with PCOS, irregular bleeding and anemia Admit to Medicine, transfuse per their discretion Sono reviewed fro 2015 was normal, recommended repeat TVUS; would also recommend HgbA1c value as well given obesity, PCOS Should be discharged home on iron Lengthy discussion with patient about inconsistent care and follow up, advised that given she has not be consistent or reliable to follow up, best to follow up in the office upon discharge, review sonogram report and repeat testing and consider restarting POPs vs Mirena IUD. Pt is not a candidate for Estrogen therapy given CVA history. Discussed the potential in the future for [employer] at [facility] if not maintained/regulated on POPs. Henrique Simon MD
[2020-03-24] MEDS ORDERED: CEFTRIAXONE 1 GM/50 ML BAG ONE (09:44)
[2020-03-24] MEDS ORDERED: CEFTRIAXONE 1 GM in DEXTROSE 5%-WATER - 50 ML IVPB SCH (10:00)
[2020-03-24] MEDS ORDERED: FAMOTIDINE 20 MG/50 ML IVPB 20 MG/50 ML MG IVPB ONE ×2 (10:21→11:44)
[2020-03-24] MEDS ORDERED: EPINEPHrine 1:1,000 0.3 MG/0.3 ML SYR IM ONE (10:22)
[2020-03-24] MEDS ORDERED: ONDANSETRON 4 MG/2 ML VIAL IVPUSH ONE (10:24)
[2020-03-24 11:03] VITALS: BP 109/68; PULSE 70; TEMP 98
[2020-03-24 12:13] LABS: EOS % 1.2 % (0-4.5); HEMATOCRIT 25.4 % (32.4-45.2); HEMOGLOBIN 7.8 GM/dL (10.7-15.3); LYMPH % 23.6 % (8-40); MCH 20.1 pg (25.7-33.7); MCHC 30.6 g/dl (32.0-36.0); MEAN CELL VOLUME 65.7 fl (80-96); MEAN PLT VOLUME 8.6 fl (7.5-11.1); NEUT % 69.2 % (42.8-82.8); PLATELET COUNT 281 K/MM3 (134-434); RBC 3.87 M/mm3 (3.60-5.2); RDW 24.6 % (11.6-15.6)
[2020-03-24 12:57] LABS: ALBUMIN 2.9 g/dl (3.4-5.0); BILIRUBIN,TOTAL 0.3 mg/dL (0.2-1); BLOOD UREA NITROGEN 8.5 mg/dL (7-18); CALCIUM 8.3 mg/dL (8.5-10.1); CREATININE 0.9 mg/dL (0.55-1.3); MAGNESIUM 2.4 mg/dL (1.8-2.4); POTASSIUM 4.2 mmol/L (3.5-5.1); TOT PROT 6.8 g/dl (6.4-8.2)
--- NOTE | 2020-03-24 13:44 | PN ---
Teaching Attending Note Name of Resident: Katia Bowens ATTENDING PHYSICIAN STATEMENT I saw and evaluated the patient. I reviewed the resident's note and discussed the case with the resident. I agree with the resident's findings and plan as documented. SUBJECTIVE: Patient feels well and wants to go home of note, after seeing patient, she had ceftriaxone infusion initiated in the ED. patient had shortness of breath and facial swelling. She was given benadryl, pepcid with resolution of symptoms. Ceftriaxone infusion was halted. Epi was ordered but not given OBJECTIVE: Vital Signs Period Temp Pulse Resp BP Sys/Javier Pulse Ox Last 24 Hr 97.5 F-98.6 F 70-116 18-22 92-111/44-78 97-100 GENERAL: Awake, alert, and fully oriented, in no acute distress. HEAD: Normal with no signs of trauma. EYES: Pupils equal, round and reactive to light, extraocular movements intact, scleral pallor conjunctiva clear. No lid lag. EARS, NOSE, THROAT: Ears normal, nares patent, oropharynx clear without exudates. Moist mucous membranes. NECK: Normal range of motion, supple without lymphadenopathy, JVD, or masses. LUNGS: Breath sounds equal, clear to auscultation bilaterally. No wheezes, and no crackles. No accessory muscle use. HEART: Regular rate and rhythm, normal S1 and S2 without murmur, rub or gallop. ABDOMEN: Soft, nontender, not distended, normoactive bowel sounds, no guarding, no rebound, no masses. No hepatomegaly or splenomegaly. morbidly Obese MUSCULOSKELETAL: Normal range of motion at all joints. No bony deformities or tenderness. No CVA tenderness. UPPER EXTREMITIES: 2+ pulses, warm, well-perfused. No cyanosis. No clubbing. Cap refill <2 seconds. No peripheral edema. LOWER EXTREMITIES: 2+ pulses, warm, well-perfused. No calf tenderness. No peripheral edema. NEUROLOGICAL: Cranial nerves II-XII intact. Normal speech. Normal gait. PSYCHIATRIC: Cooperative. Good eye contact. Appropriate mood and affect. SKIN: Warm, dry, normal turgor, no rashes or lesions noted. 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 Symptomatic anemia in setting of uterine blood loss Patient is no longer mensturating s/p 2 units PRBC in ED patient's symptoms have now resolved patient reccommended TVUS but pt refused Anaphylactic Reaction to Ceftriaxone Added Ceftriaxone to patients allergies Given pepcid/Benadryl Monitor O2 status Asymptomatic Bacturia Hold abx.--no indication to treat If patient is stable from respiratory standpoint, can discharge
--- NOTE | 2020-03-24 14:26 | DS ---
Physical Exam: SUBJECTIVE: Patient seen and examined bedside in the ED. S/p 2 units of pRBCs. Patient reports feeling much better. In no acute distress. OBJECTIVE: Vital Signs 03/24/20 11:02 Temperature 98.0 F Pulse Rate [ 70 Left Radial] Respiratory 18 Rate Blood Pressure 109/68 [Right Arm] O2 Sat by Pulse 97 Oximetry (%) PHYSICAL EXAM GENERAL: The patient is awake, alert, and fully oriented, in no acute distress. HEAD: Normal with no signs of trauma. EYES: PERRL, extraocular movements intact, sclera anicteric, conjunctiva pale ENT: moist mucous membranes. LUNGS: Breath sounds equal, CTA BL HEART: Regular rate and rhythm, S1, S2 ABDOMEN: obese, soft, nontender, nondistended EXTREMITIES: 2+ pulses, warm, well-perfused, no edema. NEUROLOGICAL: Cranial nerves II through XII grossly intact. Normal speech PSYCH: Normal mood, normal affect. SKIN: Warm, dry LABS Laboratory Results - last 24 hr 03/23/20 03/23/20 03/23/20 20:22 20:22 20:22 WBC 11.1 H RBC 2.89 L Hgb 5.0 L* Hct 17.8 L D MCV 61.4 L MCH 17.4 L D MCHC 28.3 L RDW 22.9 H Plt Count 313 D MPV 8.8 Absolute Neuts (auto) 8.4 H Neutrophils % 75.6 Lymphocytes % 18.5 Monocytes % 4.1 Eosinophils % 0.7 D Basophils % 1.1 Nucleated RBC % 0 Hypochromia 3+ Polychromasia 1+ Anisocytosis 3+ Microcytosis 2+ Macrocytosis 1+ Rouleaux 2+ PT with INR 12.70 INR 1.08 PTT (Actin FS) 26.4 Sodium Potassium Chloride Carbon Dioxide Anion Gap BUN Creatinine Est GFR (CKD-EPI)AfAm Est GFR (CKD-EPI)NonAf Random Glucose Hemoglobin A1c % Calcium Phosphorus Magnesium Iron TIBC Ferritin Total Bilirubin AST ALT Alkaline Phosphatase Creatine Kinase Troponin I Total Protein Albumin Serum , Qual Negative Urine Color Urine Appearance Urine pH Ur Specific [place] Urine Protein Urine Glucose (UA) Urine Ketones Urine Blood Urine Nitrite Urine Bilirubin Urine Urobilinogen Ur Leukocyte Esterase Urine WBC (Auto) Urine RBC (Auto) Urine Casts (Auto) U Epithel Cells (Auto) Urine Bacteria (Auto) Urine HCG, Qual Blood Type Antibody Screen Crossmatch 08/05/20 08/05/20 08/06/20 20:22 22:00 02:54 WBC RBC Hgb Hct MCV MCH MCHC RDW Plt Count MPV Absolute Neuts (auto) Neutrophils % Lymphocytes % Monocytes % Eosinophils % Basophils % Nucleated RBC % Hypochromia Polychromasia Anisocytosis Microcytosis Macrocytosis Rouleaux PT with INR INR PTT (Actin FS) Sodium 141 Potassium 4.0 Chloride 108 H Carbon Dioxide 27 Anion Gap 7 L BUN 12.1 Creatinine 0.9 Est GFR (CKD-EPI)AfAm 100.85 Est GFR (CKD-EPI)NonAf 87.01 Random Glucose 126 H Hemoglobin A1c % Calcium 8.5 Phosphorus Magnesium Iron TIBC Ferritin Total Bilirubin 0.1 L AST 15 ALT 11 L Alkaline Phosphatase 70 Creatine Kinase 94 Troponin I < 0.02 Total Protein 7.0 Albumin 3.0 L Serum , Qual Urine Color [place] Urine Appearance Cloudy Urine pH 5.5 Ur Specific [place] 1.023 Urine Protein 1+ H Urine Glucose (UA) Negative Urine Ketones Negative Urine Blood 3+ H Urine Nitrite Negative Urine Bilirubin Negative Urine Urobilinogen 0.2 Ur Leukocyte Esterase 1+ H Urine WBC (Auto) 218 Urine RBC (Auto) 6053 Urine Casts (Auto) 2 U Epithel Cells (Auto) 13 Urine Bacteria (Auto) 519 Urine HCG, Qual Negative Blood Type A POSITIVE Antibody Screen Negative Crossmatch See Detail 03/24/20 03/24/20 03/24/20 06:00 06:00 12:00 WBC 9.0 RBC 3.87 Hgb 7.8 L Hct 25.4 L D MCV 65.7 L MCH 20.1 L D MCHC 30.6 L RDW 24.6 H Plt Count 281 MPV 8.6 Absolute Neuts (auto) 6.2 Neutrophils % 69.2 Lymphocytes % 23.6 D Monocytes % 5.0 Eosinophils % 1.2 Basophils % 1.0 Nucleated RBC % 0 Hypochromia Polychromasia Anisocytosis Microcytosis Macrocytosis Rouleaux PT with INR INR PTT (Actin FS) Sodium 140 Potassium 4.2 Chloride 108 H Carbon Dioxide 26 Anion Gap 7 L BUN 8.5 Creatinine 0.9 Est GFR (CKD-EPI)AfAm 100.85 Est GFR (CKD-EPI)NonAf 87.01 Random Glucose 131 H Hemoglobin A1c % Calcium 8.3 L Phosphorus 3.0 Magnesium 2.4 Iron 33 L TIBC 415 Ferritin 7.6 L Total Bilirubin 0.3 AST 10 L ALT 12 L Alkaline Phosphatase 68 Creatine Kinase Troponin I Total Protein 6.8 Albumin 2.9 L Serum , Qual Urine Color Urine Appearance Urine pH Ur Specific [place] Urine Protein Urine Glucose (UA) Urine Ketones Urine Blood Urine Nitrite Urine Bilirubin Urine Urobilinogen Ur Leukocyte Esterase Urine WBC (Auto) Urine RBC (Auto) Urine Casts (Auto) U Epithel Cells (Auto) Urine Bacteria (Auto) Urine HCG, Qual Blood Type Antibody Screen Crossmatch 03/24/20 12:00 WBC RBC Hgb Hct MCV MCH MCHC RDW Plt Count MPV Absolute Neuts (auto) Neutrophils % Lymphocytes % Monocytes % Eosinophils % Basophils % Nucleated RBC % Hypochromia Polychromasia Anisocytosis Microcytosis Macrocytosis Rouleaux PT with INR INR PTT (Actin FS) Sodium Potassium Chloride Carbon Dioxide Anion Gap BUN Creatinine Est GFR (CKD-EPI)AfAm Est GFR (CKD-EPI)NonAf Random Glucose Hemoglobin A1c % 6.1 Calcium Phosphorus Magnesium Iron TIBC Ferritin Total Bilirubin AST ALT Alkaline Phosphatase Creatine Kinase Troponin I Total Protein Albumin Serum , Qual Urine Color Urine Appearance Urine pH Ur Specific [place] Urine Protein Urine Glucose (UA) Urine Ketones Urine Blood Urine Nitrite Urine Bilirubin Urine Urobilinogen Ur Leukocyte Esterase Urine WBC (Auto) Urine RBC (Auto) Urine Casts (Auto) U Epithel Cells (Auto) Urine Bacteria (Auto) Urine HCG, Qual Blood Type Antibody Screen Crossmatch HOSPITAL COURSE: Patient is a 29 yo F with PMHx of iron-deficiency anemia, multiple transfusions after irregular bleeding (last transfusion in November at [employer]), menorrhagia, CVA (with no residual deficits in 2018), chronic migraines, and PCOS. Presented to the ED with worsening SOB, fatigue, and dizziness over 3 days. Found to have Hbg of 5. Given 2 units of pRBCs and IVF. She was also evaluated by OBGYN who suggested a transvaginal ultrasound. The patient declined US in hospital and said she'd wait to do it outpatient. On the initial exam, an infection was also suspected. The patient was started on 1 g IV ceftriaxone and had an immediate anaphylactic reaction. She was given IV Benadryl, IV pepcid and zofran with instant relief. Patient was monitored over the next few hours for any other reaction. Patient was told to tell all her future medical providers that she is allergic to ceftriaxone and should not be given this antibiotic. Patient repeat Hbg was 7.8. Patient was stable for discharge, but she eloped before being formally discharged with any of her paperwork. Date of Admission:03/24/20 Date of Discharge: 03/24/20 Minutes to complete discharge: 36 Discharge Summary Problems reviewed: Yes Reason For Visit: ANEMIA Current Active Problems Symptomatic anemia (Acute) Condition: Stable - Instructions Diet, Activity, Other Instructions: Visit: You came to the emergency room because you were feeling weak and more short of breath. This has happened to you before when your blood levels get low. You blood levels were low and you required a blood transfusion. Initially, there was concern for a urinary tract infection. You were given antibiotics in the emergency room but you immediately had a severe reaction. You were treated for this reaction and are now stable for discharge. After further assessment, it has been decided that you do not need antibiotics at this time. Follow up with your doctor if you start having urinary problems. Medications: Please continue your home medications You are ALLERGIC to Ceftriaxone. Please keep a record of this and tell any of your medical care provider your are allergic to this antibiotic so it's in your records. You had swelling and vomiting with this drug. DO NOT TAKE this medication. Follow up: Please follow up with your OBGYN Dr. Simon within 1 week of being discharged. You need to see her for your frequent bleeding and to do the transvaginal ultrasound you did not want to do in the hospital. Please follow up with your primary care doctor for continuity of care. If you experience and chest pain, increased swelling or feeling of tightness in your throat, please call 911 or immediately go to the emergency department. Referrals: Yael Simon MD [Staff Physician] - 1 Week () Disposition: ELOPED - Home Medications Comprehensive Discharge Medication List: Ambulatory Orders Ferrous Sulfate 325 mg PO BID 03/23/20 Metformin HCl [Glucophage] 500 mg PO BID 03/24/20 This patient is new to me today: Yes Date on this admission: 03/24/20 Emergency Visit: Yes ED Registration Date: 03/24/20 Care time: The patient presented to the Emergency Department on the above date and was hospitalized for further evaluation of their emergent condition. Critical Care patient: No - Discharge Referral Referred to [facility] Med P.C.: No ATTENDING PHYSICIAN STATEMENT I saw and evaluated the patient. I reviewed the resident's note and discussed the case with the resident. I agree with the resident's findings and plan as documented. SUBJECTIVE: OBJECTIVE: ASSESSMENT AND PLAN:
--- NOTE | 2020-03-24 14:55 | EKG ---
Test Reason : Blood Pressure : / mmHG Vent. Rate : 088 BPM Atrial Rate : 088 BPM P-R Int : 140 ms QRS Dur : 082 ms QT Int : 342 ms P-R-T Axes : 032 021 014 degrees QTc Int : 413 ms NORMAL SINUS RHYTHM NORMAL ECG WHEN COMPARED WITH ECG OF 26-AUG-2018 14:19, NO SIGNIFICANT CHANGE WAS FOUND Confirmed by NIKIA GEORGE MD ([id number]) on 03/24/2020 2:55:02 PM Referred By: Confirmed By:NIKIA GEORGE MD
== END 2020-03-24 15:15 | disposition left against medical advice (07) | DRG 532 ==
LOC: JER 18:56 → JERBED 03-24 00:02
PROVIDERS: ADMIT Internal Medicine; ATTEND Internal Medicine
PROC: 30233N1 Transfusion of Nonautologous Red Blood Cells into Peripheral Vein, Percutaneous Approach (ICD-10-PCS; principal; 2020-03-24)
DX: N92.0 Excessive and frequent menstruation with regular cycle (principal); Z86.73 Personal history of transient ischemic attack (TIA), and cerebral infarction without residual deficits; D50.9 Iron deficiency anemia, unspecified; E66.01 Morbid (severe) obesity due to excess calories; Z68.42 Body mass index [BMI] 45.0-49.9, adult; T88.6XXA Anaphylactic reaction due to adverse effect of correct drug or medicament properly administered, initial encounter; T36.1X5A Adverse effect of cephalosporins and other beta-lactam antibiotics, initial encounter; R82.81 Pyuria; G43.909 Migraine, unspecified, not intractable, without status migrainosus; E28.2 Polycystic ovarian syndrome; R22.0 Localized swelling, mass and lump, head; N30.00 Acute cystitis without hematuria
CPT/HCPCS: 36415; 36430; 36511; 71045-TC-FY; 80053; 81003; 82550; 82607; 82728; 82746; 83036; 83540; 83550; 83735; 84100; 84484; 84703; 85025; 85610; 85730; 86850; 86900; 86901; 86922; 93005; 93010; 99285-25; P9038; P9058

== ENCOUNTER 2021-04-17 16:07 | Inpatient (IN) | payer OTHER ==
[2021-04-17 18:52] LABS: BASO % 1.2 % (0-2.0); EOS % 1.1 % (0-4.5); HEMATOCRIT 22.5 % (32.4-45.2); LYMPH % 18.1 % (8-40); MCHC 30.1 g/dl (32.0-36.0); MEAN CELL VOLUME 63.5 fl (80-96); MEAN PLT VOLUME 8.2 fl (7.5-11.1); MONO % 5.2 % (3.8-10.2); NEUT % 74.4 % (42.8-82.8); PLATELET COUNT 383 10^3/uL (134-434); RBC 3.55 M/mm3 (3.60-5.2); RDW 18.5 % (11.6-15.6); WHITE BLOOD COUNT 9.8 K/mm3 (4.0-10.0)
[2021-04-17 18:59] LABS: INR 1.09 (0.83-1.09); MCH 19.1 pg (25.7-33.7); PROTHROMBIN TIME (PATIENT) 13.2 SEC (9.7-13.0)
[2021-04-17 19:00] LABS: HEMOGLOBIN 6.8 GM/dL (10.7-15.3)
[2021-04-17 19:02] LABS: ACTIVATED PTT 27.3 SECONDS (25.2-36.5)
[2021-04-17 19:06] LABS: ALBUMIN 3.1 g/dl (3.4-5.0); BLOOD UREA NITROGEN 14.2 mg/dL (7-18); CALCIUM 8.6 mg/dL (8.5-10.1)
[2021-04-17 19:09] LABS: CREATININE 1.1 mg/dL (0.55-1.3)
[2021-04-17 19:11] LABS: BILIRUBIN,TOTAL 0.1 mg/dL (0.2-1); TOT PROT 7.2 g/dl (6.4-8.2)
[2021-04-17 19:28] LABS: ANISOCYTOSIS 3+; MACROCYTOSIS 1+; PLATELET ESTIMATE NORMAL; TARGET CELLS 1+
[2021-04-18 07:44] VITALS: BMI 47.2
[2021-04-18] MEDS: ENOXAPARIN NA (PORCINE) 40 MG/0.4 ML DISP.SYRIN SQ SCH ×2 (10:43→10:45)
[2021-04-18 11:40] LABS: BASO % 0.5 % (0-2.0); EOS % 1.3 % (0-4.5); HEMATOCRIT 28.4 % (32.4-45.2); HEMOGLOBIN 9.2 GM/dL (10.7-15.3); LYMPH % 18.5 % (8-40); MCH 22.5 pg (25.7-33.7); MCHC 32.4 g/dl (32.0-36.0); MEAN CELL VOLUME 69.4 fl (80-96); MEAN PLT VOLUME 8.7 fl (7.5-11.1); MONO % 5.1 % (3.8-10.2); NEUT % 74.6 % (42.8-82.8); PLATELET COUNT 337 10^3/uL (134-434); RBC 4.09 M/mm3 (3.60-5.2); RDW 24.2 % (11.6-15.6); WHITE BLOOD COUNT 8.9 K/mm3 (4.0-10.0)
[2021-04-18 11:58] LABS: CALCIUM 8.5 mg/dL (8.5-10.1)
[2021-04-18 11:59] LABS: BLOOD UREA NITROGEN 12.3 mg/dL (7-18); MAGNESIUM 2.1 mg/dL (1.8-2.4)
[2021-04-18 12:02] LABS: CREATININE 0.8 mg/dL (0.55-1.3)
[2021-04-18 12:03] LABS: PHOSPHOROUS 3.3 mg/dL (2.5-4.9)
[2021-04-18 13:50] VITALS: BP 112/59; PULSE 64; TEMP 98
== END 2021-04-18 16:12 | disposition home or self-care (01) | DRG 663 ==
LOC: JER 16:07 → JERBED 21:54 → J8W 04-18 03:53
PROVIDERS: ADMIT Internal Medicine; ATTEND Nurse Practitioner Family
PROC: 30233N1 Transfusion of Nonautologous Red Blood Cells into Peripheral Vein, Percutaneous Approach (ICD-10-PCS; principal; 2021-04-17)
DX: D50.9 Iron deficiency anemia, unspecified (principal); N93.9 Abnormal uterine and vaginal bleeding, unspecified; E28.2 Polycystic ovarian syndrome; N92.1 Excessive and frequent menstruation with irregular cycle; G43.909 Migraine, unspecified, not intractable, without status migrainosus; R73.9 Hyperglycemia, unspecified; E66.01 Morbid (severe) obesity due to excess calories; Z68.42 Body mass index [BMI] 45.0-49.9, adult; Z86.73 Personal history of transient ischemic attack (TIA), and cerebral infarction without residual deficits
CPT/HCPCS: 36415; 36430; 76830-TC; 80048; 80053; 83735; 84100; 84703; 85025; 85610; 85730; 86850; 86900; 86901; 86922; 93005; 93010; 97116-GP; 97161-GP; 99285-25; C9803; P9058; U0003; U0005

== ENCOUNTER 2021-05-01 04:41 | Day surgery (SDC) | payer OTHER ==
[2021-04-28 12:21] VITALS: BMI 46.0
[2021-05-01] MEDS ORDERED: IBUPROFEN 400 MG TABLET (FP) PO PRN (06:58)
[2021-05-01] MEDS ORDERED: ACETAMINOPHEN 325 MG TABLET (FP) PO PRN (06:58)
[2021-05-01] MEDS ORDERED: ONDANSETRON 4 MG/2 ML VIAL IVPUSH PRN (14:30)
[2021-05-01] MEDS ORDERED: LACTATED RINGERS SOLUTION 1,000 ML IV SCH (14:30)
[2021-05-01] MEDS ORDERED: PROPOFOL 20 ML ONE ×2 (14:34→14:39)
[2021-05-01] MEDS ORDERED: MIDAZOLAM HCL 2 MG/2 ML SINGLE DOSE VIAL ONE (14:34)
[2021-05-01] MEDS ORDERED: KETOROLAC TROMETHAMINE 30 MG/1 ML VIAL ONE (14:52)
[2021-05-01] MEDS ORDERED: DEXAMETHASONE SOD PHOSPHATE 4 MG/1 ML VIAL ONE (14:52)
[2021-05-01 18:18] VITALS: BP 106/58; PULSE 60; TEMP 97.8
== END 2021-05-01 18:20 | disposition home or self-care (01) ==
LOC: JASU-SURG 04:41
PROVIDERS: ATTEND Obstetrics & Gynecology
PROC: 0UDB7ZZ Extraction of Endometrium, Via Natural or Artificial Opening (ICD-10-PCS; principal; 2021-05-01 13:00)
DX: N92.0 Excessive and frequent menstruation with regular cycle (principal); N93.9 Abnormal uterine and vaginal bleeding, unspecified
CPT/HCPCS: 81025; 88305-TC; 94760

== ENCOUNTER 2025-02-17 07:36 | Inpatient (IN) | payer BC, OTHER ==
[2025-02-17] MEDS: SODIUM CHLORIDE 1,000 ML IV STA (08:30)
[2025-02-17 09:08] LABS: ABSOLUTE IMMATURE GRANULOCYTES 0.02 x10^3/uL (0.0-0.031); BASOPHILS # 0.03 x10^3/uL (0.01-0.08); EOSINOPHIL % 1.9 % (0.7-5.8); EOSINOPHILS # 0.14 x10^3/uL (0.04-0.36); MCHC 30.3 g/dl (32.2-35.5); MEAN CELL VOLUME 78.2 fl (79.4-94.8); MEAN PLT VOLUME 11.1 fl (9.4-12.3); MONOCYTE # 0.44 x10^3/uL (0.24-0.86); MONOCYTE % 6.0 % (4.7-12.5); RDW 17.6 % (12.1-16.8)
[2025-02-17 09:09] LABS: URINE APPEARANCE CLOUDY; URINE BILIRUBIN NEGATIVE (NEGATIVE); URINE COLOR YELLOW; URINE GLUCOSE (UA) NEGATIVE (NEGATIVE); URINE KETONE TRACE (NEGATIVE); URINE LEUK ESTERASE NEGATIVE (NEGATIVE); URINE NITRITE NEGATIVE (NEGATIVE); URINE PROTEIN TRACE (NEGATIVE); URINE UROBILINOGEN 1.0 mg/dL (0.2-1.0)
[2025-02-17 09:12] LABS: HCG,QUALITATIVE URINE Negative
[2025-02-17 09:30] LABS: CO2 28 mmol/L (21-32); GLUCOSE,RANDOM 148 mg/dL (74-106)
[2025-02-17 09:33] LABS: CREATININE 1.0 mg/dL (0.55-1.3); SGOT/AST 48 U/L (15-37); SGPT/ALT 17 U/L (13-61)
[2025-02-17 09:34] LABS: TOT PROT 8.1 g/dl (6.4-8.2)
[2025-02-17 09:36] LABS: ALK PHOS 73 U/L (45-117)
[2025-02-17] MEDS: ACETAMINOPHEN 1000 MG/100 ML BAG IVPB ONE (09:36)
[2025-02-17] MEDS: ONDANSETRON 4 MG/2 ML VIAL IVPUSH ONE (09:37)
[2025-02-17 12:52] LABS: HCV DIAGNOSTIC IN-HOUSE W/RFLX NON-REACTIVE (NONREACTIVE); HIV INTERPRETATION NEGATIVE (NEGATIVE)
[2025-02-17] MEDS: PIPERACILLIN/TAZOB 3.375 GM 3.375 GM in DEXTROSE 5%-WATER - 50 ML IVPB ONE (13:19)
[2025-02-17 13:47] LABS: INR 1.18 (0.83-1.09); PROTHROMBIN TIME (PATIENT) 12.9 SEC (9.7-13.0)
[2025-02-17 13:49] LABS: ACTIVATED PTT 27.2 SECONDS (25.2-36.5)
[2025-02-17] MEDS ORDERED: ENOXAPARIN NA (PORCINE) 40 MG/0.4 ML DISP.SYRIN SQ ONE (14:10)
[2025-02-17] MEDS ORDERED: ACETAMINOPHEN 1000 MG/100 ML BAG IVPB PRN (14:24)
[2025-02-17] MEDS: SODIUM CHLORIDE 1,000 ML IV SCH ×2 (15:11→18:20)
[2025-02-17] MEDS ORDERED: MIDAZOLAM HCL 2 MG/2 ML SINGLE DOSE VIAL ONE (16:00)
[2025-02-17] MEDS ORDERED: HEPARIN NA (PORCINE) 5,000 UNITS/ML 1ML VIAL ONE (16:14)
[2025-02-17] MEDS ORDERED: CLINDAMYCIN PHOSPHATE 600 MG/4 ML VIAL ONE (16:14)
[2025-02-17] MEDS ORDERED: CLINDAMYCIN PHOSPHATE 300 MG/2 ML VIAL ONE (16:15)
[2025-02-17] MEDS: BUPIVACAINE HCL/PF 2.5 MG/ML - 30 ML VIAL IJ ONE (16:41)
[2025-02-17] MEDS ORDERED: SUGAMMADEX SODIUM 200 MG/2 ML VIAL ONE (16:55)
[2025-02-17] MEDS: LACTATED RINGERS SOLUTION 1,000 ML IV SCH (19:52)
[2025-02-17] MEDS: ACETAMINOPHEN 1000 MG/100 ML BAG IVPB PRN (21:21)
[2025-02-17 22:27] LABS: CO2 23.0 mmol/L (21-32); GLUCOSE,RANDOM 215.0 mg/dL (74-106)
[2025-02-17 22:31] LABS: CREATININE 1.0 mg/dL (0.55-1.3)
[2025-02-17 23:01] VITALS: BMI 45.8
[2025-02-18 06:22] VITALS: TEMP 98.6
[2025-02-18 08:41] LABS: MCHC 30.1 g/dl (32.2-35.5); MEAN CELL VOLUME 77.9 fl (79.4-94.8); MEAN PLT VOLUME 10.9 fl (9.4-12.3); RDW 17.5 % (12.1-16.8)
[2025-02-18 09:18] LABS: CO2 24.0 mmol/L (21-32); GLUCOSE,RANDOM 165.0 mg/dL (74-106)
[2025-02-18 09:21] LABS: CREATININE 0.9 mg/dL (0.55-1.3); SGOT/AST 37.0 U/L (15-37); SGPT/ALT 30.0 U/L (13-61)
[2025-02-18 09:22] LABS: TOT PROT 7.5 g/dl (6.4-8.2)
[2025-02-18 09:23] LABS: ALK PHOS 74.0 U/L (45-117)
[2025-02-18] MEDS ORDERED: ENOXAPARIN NA (PORCINE) 40 MG/0.4 ML DISP.SYRIN SQ SCH ×2 (10:00)
[2025-02-18 10:34] VITALS: BP 128/82; PULSE 71; RESP 19
== END 2025-02-18 10:42 | disposition home or self-care (01) | DRG 418 ==
LOC: JER 07:36 → JERBED 12:47 → J8W 18:51
PROVIDERS: ADMIT Internal Medicine; ATTEND Nurse Practitioner Family
PROC: 0FT44ZZ Resection of Gallbladder, Percutaneous Endoscopic Approach (ICD-10-PCS; principal; 2025-02-17 19:00)
DX: K80.00 Calculus of gallbladder with acute cholecystitis without obstruction (principal); Z68.42 Body mass index [BMI] 45.0-49.9, adult; D50.9 Iron deficiency anemia, unspecified; E66.01 Morbid (severe) obesity due to excess calories; E87.5 Hyperkalemia
CPT/HCPCS: 36415; 74177-TC; 76705-TC; 80048; 80053; 81003; 83690; 83735; 84703; 85025; 85027; 85610; 85730; 86803; 86850; 86900; 86901; 87086; 87389; 88304-TC; 93005; 93010; 94760; 99285-25; Q9967